=== PATIENT | male | born 1945 ===

== ENCOUNTER 2018-02-04 12:54 | Emergency (ER) | payer MEDICARE, OTHER ==
[2018-02-04 13:12] VITALS: BP 132/77
[2018-02-04] MEDS ORDERED: cefTRIAXone VIAL(*) 1,000 MG VIAL IM ONE (14:05)
[2018-02-04] MEDS ORDERED: Lidocaine 1% INJ* 10 MG/ML 30 ML SDV INJ ONE (14:06)
[2018-02-04] MEDS ORDERED: Lidocaine 1%* 5 ML VIAL ONE (14:09)
--- NOTE | 2018-02-04 14:28 | RAD ---
HISTORY: swollen red joint tenderness COMPARISONS: None VIEWS: 3, Frontal, lateral, and oblique views of the fourth digit of the right foot FINDINGS: BONE DENSITY: Normal. BONES: There is no displaced fracture. There is no appreciable erosion or periosteal reaction. JOINTS: There is no arthropathy. ALIGNMENT: There is no dislocation. SOFT TISSUES: There is soft tissue swelling at the level of the proximal interphalangeal joint of the fourth digit. OTHER FINDINGS: None. IMPRESSION: SOFT TISSUE SWELLING. NO ACUTE OSSEOUS INJURY. IF SYMPTOMS PERSIST, RECOMMEND REPEAT IMAGING.
--- NOTE | 2018-02-17 11:45 | UC ---
Jef Barahona Elizabeth, scribed for Gely Harper DO on 02/04/18 at 1355 . Lower Extremity/Ankle HPI - HPI Summary HPI Summary: This patient is a 72 year old M presenting to [facility] accompanied by his with a chief complaint of swelling, redness, and shooting pain in his right foot since last night. The patient reports that he initially noticed swelling and pain in his right 4th toe 4 days ago after wearing work boots, but what was there burst and drained fluid 2 days ago, alleviating most of the pain. The patient notes that he regularly cycles and participated in a 20K cycling race yesterday morning. Since 1 day ago, his whole right foot has become swollen, red , and painful. The patient also noticed a large tissue mass on the toe last night that was not initially present after the race. The patient rates the pain 9/10 in severity. Symptoms aggravated by bearing weight. Symptoms alleviated by nothing. The patient reports having chills last night, but no violent shivering. The patient also notes he got sunburnt on his legs, arms, and face 1 day ago. Patient denies any injury to the toe. The patient notes that he soaked the foot in Epsom salts. - History of Current Complaint Chief Complaint: UCLowerExtremity Stated Complaint: FOOT COMPLAINT Time Seen by Provider: 02/04/18 13:17 Hx Obtained From: Patient, Family/Help Desk Support Specialist - patient's Onset/Duration: Sudden Onset, Lasting Days - 4 days, Still Present, Worse Since - last night Severity Initially: Mild Severity Currently: Moderate Pain Intensity: 9 Pain Scale Used: 0-10 Numeric Aggravating Factor(s): Standing, Ambulation Alleviating Factor(s): Nothing Able to Bear Weight: Yes - Allergies/Home Medications Allergies/Adverse Reactions: Allergies Allergy/AdvReac Type Severity Reaction Status Date / Time No Known Allergies Allergy Verified 02/04/18 13:12 PMH/Surg Hx/FS Hx/Imm Hx Other Cardiovascular History: heart murmur, leaking mitral valve Respiratory History: Asthma Other Respiratory History: asthma as a child, resolved since - Surgical History Surgical History: Yes Surgery Procedure, Year, and Place: tonsillectomy - Family History Known Family History: Positive: Cardiac Disease - Social History Alcohol Use: Weekly Substance Use Type: None Smoking Status (MU): Never Smoked Tobacco Review of Systems Constitutional: Chills Skin: Other - redness on right foot, large tissue mass to right 4th toe Respiratory: Negative - NEGATIVE COUGH Gastrointestinal: Negative - NEGATIVE VOMITING, NEGATIVE NAUSEA Musculoskeletal: Edema - to right foot All Other Systems Reviewed And Are Negative: Yes Physical Exam - Summary Physical Exam Summary: Appearance: Well-Appearing, No Pain Distress, Well-Nourished Eyes: conjunctiva clear, no discharge ENT: Hearing grossly normal, no muffled/hoarse voice. Neck: Normal, Supple Respiratory/Lung Sounds: Lungs clear, Normal breath sounds, No respiratory distress, No accessory muscle use Cardiovascular: irregular rate, irregular rhythm Musculoskeletal: tenderness on plantar aspect of MCP, entire 4th toe is tender from the MCP distally, crepitus is noted on the plantar aspect of the MCP of the 4th toe, pedal edema is noted of the right foot Neurological: Alert, muscle tone normal Psychiatric: Normal, age appropriate behavior Skin: 1cm intact blister on top of right 4th toe that looks like it may contain some purulent material, redness and swelling extends over the entire toe all the way to the MCP Triage Information Reviewed: Yes Vital Signs: Initial Vital Signs Temp 98.9 F 02/04/18 13:04 Pulse 111 02/04/18 13:04 Resp 18 02/04/18 13:04 BP 132/77 02/04/18 13:04 Pulse Ox 99 02/04/18 13:04 Vital Signs Reviewed: Yes Diagnostics - Radiology Right 4th Toe XR Xray Interpretation: No Acute Changes - IMPRESSION: SOFT TISSUE SWELLING. NO ACUTE OSSEOUS INJURY. IF SYMPTOMS PERSIST, RECOMMEND REPEAT IMAGING. Dr. Harper has reviewed this report. Radiology Interpretation Completed By: Radiologist Lower Extremity Course/Dx - Course Course Of Treatment: This patient is a 72 year old M reporting swelling, redness , and shooting pain in his right foot since last night. The patient reports that he initially noticed swelling and pain in his right 4th toe 4 days ago, but what was there burst and drained fluid 2 days ago. After participating in a 20K bike race 1 day ago, his whole right foot became swollen, red, and painful and he noticed a large tissue mass on the toe starting last night. In the [facility] course the patient was given Rocephin and Xylocaine 1%. XR result reviewed with patient. Patient will be discharged with prescription for amoxicillin and a referral for an orthopedist. The patient is agreeable with this plan. Medications reviewed. Allergies reviewed. - Differential Dx/Diagnosis Provider Diagnoses: infection Discharge - Sign-Out/Discharge Documenting (check all that apply): Discharge/Admit/Transfer - Discharge Plan Condition: Stable Disposition: HOME Discharge Disposition Comment: discharge home Prescriptions: Amoxicillin/Clavulanate TAB* [Augmentin TAB 875*] 875 mg PO BID #20 tab Patient Education Materials: Wound Infection (DC), Septic Arthritis (DC) Referrals: Stephon Elizabeth MD [Primary Care Provider] - Deonte Pereyra MD [Medical Doctor] - 1 Day Additional Instructions: ROCEPHIN: You have been given an injection of an antibiotic called Rocephin ( ceftriaxone). Sometimes the injection must be combined with antibiotic pills. For some infections, such as an uncomplicated ear infection, Rocephin provides all the antibiotic that's needed. The antibiotic will be in your body for about two days. For serious infections, we usually repeat doses of Rocephin daily. Side effects are very unusual following a shot. Women may develop vaginal yeast infections, and babies can get yeast (thrush) in the mouth following the use of antibiotics. Contact your physician if you have symptoms with this medication. Allergy to this antibiotic can result in hives, wheezing, faintness, or itching. If symptoms of allergy occur, call the doctor at once. AUGMENTIN: Augmentin is a mixture of amoxicillin and clavulanate. Amoxicillin is a member of the penicillin family. It covers the germs likely to cause ear, bronchial, and urinary infections better than plain penicillin. The addition of clavulanate allows it to cover staph infections of the skin, as well as resistant cases of ear and sinus infections. Your physician has chosen Augmentin for you because of the special nature of your situation. Augmentin is best taken with meals. Nausea after taking the medication is rare, but can occur. Diarrhea can occur, particularly in small children. Vaginal yeast infections, and oral thrush in infants are also common. Contact your physician if these problems occur. Allergy to penicillins is common. If you have had an allergic reaction to any drug of the penicillin family, you should never take any other penicillin. Notify your doctor at once if you develop hives, shortness of breath, swelling, or faintness. ANYTIME YOU TAKE AN ANTIBIOTIC, IT IS IMPORTANT TO REPLENISH THE BODY'S SUPPLY OF "GOOD BACTERIA." YOU CAN GET GOOD BACTERIA FROM HIGH QUALITY CULTURED FOODS SUCH LOCAL YOGURT, SOUR KRAUT, LALITA ANNE MARIE, NATURALLY FERMENTED PICKLES AND PROBIOTIC DRINKS. YOU CAN ALSO GET GOOD BACTERIA FROM A PROBIOTIC SUPPLEMENT. The documentation as recorded by the Jef wang Elizabeth accurately reflects the service I personally performed and the decisions made by me, Gely Harper DO.
== END 2018-02-04 15:06 | disposition home or self-care (01) ==
LOC: UCEAST 12:54
DX: L08.9 Local infection of the skin and subcutaneous tissue, unspecified (principal); S90.424A Blister (nonthermal), right lesser toe(s), initial encounter; X58.XXXA Exposure to other specified factors, initial encounter; Y93.9 Activity, unspecified; Y92.9 Unspecified place or not applicable; R60.0 Localized edema; R01.1 Cardiac murmur, unspecified; I34.0 Nonrheumatic mitral (valve) insufficiency; J45.909 Unspecified asthma, uncomplicated; Z82.49 Family history of ischemic heart disease and other diseases of the circulatory system
CPT/HCPCS: 96372; 99213; G0463; J0696

== ENCOUNTER 2018-02-04 23:33 | Emergency (ER) | payer MEDICARE, OTHER ==
[2018-02-05] MEDS ORDERED: Clindamycin 600 MG IVPREMIX(* 600 MG/50 ML SDV IV ONE (00:03)
[2018-02-05 00:22] LABS: ABS Basophils 0.1 10^3/ul (0-0.2); ABS Eosinophils 0.5 10^3/ul (0-0.6); ABS Lymphocytes 1.3 10^3/ul (1.0-4.8); ABS Monocytes 0.8 10^3/ul (0-0.8); ABS Neutrophils 4.6 10^3/ul (1.5-7.7); ABS Nucleated RBC 0 10^3/ul; Eosinophil % 7.5 % (0-6); Hematocrit 40 % (42-52); Hemoglobin 13.7 g/dl (14.0-18.0); Lymphocyte % 17.6 % (25-47); Mean Corpuscular HGB Conc 34 g/dl (31-36); Mean Corpuscular Hemoglobin 33 pg (27-31); Mean Corpuscular Volume 98 fL (80-94); Mean Platelet Volume 6.7 um3 (7.4-10.4); Nucleated Red Blood Cells % 0; Platelet Count 216 10^3/ul (150-450); Red Blood Count 4.11 10^6/ul (4.00-5.40); Red Cell Distribution Width 14 % (10.5-15); White Blood Count 7.4 10^3/ul (3.5-10.8)
[2018-02-05 00:38] LABS: EGFR Non-African American 69.4 (>60)
[2018-02-05 01:55] VITALS: BP 121/75
--- NOTE | 2018-02-05 05:05 | ED ---
Sondra Barahona Gabriel, scribed for Haider Garcia MD on 02/04/18 at 2355 . Lower Extremity - HPI Summary HPI Summary: This patient is a 73 year old M presenting to [facility] accompanied by his with a chief complaint of fourth toe infection on the right foot that began 4 days ago and has gotten worse. The patient rates the pain 5/10 in severity. Since then the swelling and redness has increased beyond the outlined area. Patient reports swelling up the knee. He was seen at [facility] where xrays were done and he was given abx. Pt states he had a blister on the foot that popped which allowed infection to enter. - History of Current Complaint Chief Complaint: EDExtremityLower Stated Complaint: SWELLING Time Seen by Provider: 02/04/18 23:47 Hx Obtained From: Patient Mechanism Of Injury: Other Onset of Pain: Immediate Onset/Duration: Still Present Severity Initially: Moderate Severity Currently: Moderate Pain Intensity: 5 Pain Scale Used: 0-10 Numeric Timing: Constant Location: Is Discrete @ - RLE Associated Signs And Symptoms: Positive: Swelling, Redness Able to Bear Weight: Yes - Allergies/Home Medications Allergies/Adverse Reactions: Allergies Allergy/AdvReac Type Severity Reaction Status Date / Time No Known Allergies Allergy Verified 02/04/18 23:40 PMH/Surg Hx/FS Hx/Imm Hx Endocrine/Hematology History: Denies: Hx Diabetes, Hx Thyroid Disease Cardiovascular History: Denies: Hx Hypertension Respiratory History: Denies: Hx Asthma, Hx Chronic Obstructive Pulmonary Disease (COPD) GI History: Denies: Hx Ulcer Psychiatric History: Denies: Hx Oppositional [place] Disorder, Hx Post Traumatic Stress Disorder - Surgical History Surgery Procedure, Year, and Place: tonsillectomy Infectious Disease History: No Infectious Disease History: Denies: Hx Hepatitis, Hx Human Immunodeficiency Virus (HIV), Traveled Outside the [place] in Last 30 Days - Family History Known Family History: Negative: Renal Disease, Respiratory Disease, Seizure Disorder - Social History Lives: With Family Alcohol Use: Weekly Substance Use Type: Reports: None Smoking Status (MU): Never Smoked Tobacco Review of Systems Musculoskeletal: Other - foot and calf pain Positive: Edema Positive: Other - infection, redness, All Other Systems Reviewed And Are Negative: Yes Physical Exam - Summary Physical Exam Summary: Appearance: Well appearing, no pain distress Skin: Pointing abscess in the web space between 3rd and 4th toes most involving the medal aspect 4th. The erythema is extending beyond the previously marked lines. Head/face: normal Eyes: EOMI, MADELAINE ENT: normal Neck: supple, non-tender Respiratory: CTA, breath sounds present Cardiovascular: bradycardic pulses symmetrical Abdomen: non-tender, soft Bowel Sounds: present Musculoskeletal: normal, strength/ROM intact, no significant swelling, there is mild swelling at the ankle Neuro: normal, sensory motor intact, A&Ox3 Triage Information Reviewed: Yes Vital Signs On Initial Exam: Initial Vitals Temp Pulse Resp BP Pulse Ox 98.6 F 68 18 152/84 100 02/04/18 23:35 02/04/18 23:35 02/04/18 23:35 02/04/18 23:35 02/04/18 23:35 Vital Signs Reviewed: Yes Procedures - Incision and Drainage Right Lower Plantar Foot Site: I unroofed the abscess, no foreign body, culture sent, well tolerated, Instrument(s): Needle - 18g Diagnostics - Vital Signs Vital Signs Temp Pulse Resp BP Pulse Ox 02/04/18 23:35 98.6 F 68 18 152/84 100 - Laboratory Lab Results: Lab Results 02/05/18 02/05/18 02/05/18 Range/Units 00:04 00:04 00:04 WBC 7.4 (3.5-10.8) 10^3/ul RBC 4.11 (4.00-5.40) 10^6/ul Hgb 13.7 L (14.0-18.0) g/dl Hct 40 L (42-52) % MCV 98 H (80-94) fL MCH 33 H (27-31) pg MCHC 34 (31-36) g/dl RDW 14 (10.5-15) % Plt Count 216 (150-450) 10^3/ul MPV 6.7 L (7.4-10.4) um3 Neut % (Auto) 62.9 (38-83) % Lymph % (Auto) 17.6 L (25-47) % [place] % (Auto) 11.0 H (0-7) % Eos % (Auto) 7.5 H (0-6) % Baso % (Auto) 1.0 (0-2) % Absolute Neuts (auto) 4.6 (1.5-7.7) 10^3/ul Absolute Lymphs (auto) 1.3 (1.0-4.8) 10^3/ul Absolute Monos (auto) 0.8 (0-0.8) 10^3/ul Absolute Eos (auto) 0.5 (0-0.6) 10^3/ul Absolute Basos (auto) 0.1 (0-0.2) 10^3/ul Absolute Nucleated RBC 0 10^3/ul Nucleated RBC % 0 Sodium 136 (135-145) mmol/L Potassium 4.1 (3.5-5.0) mmol/L Chloride 101 (101-111) mmol/L Carbon Dioxide 28 (22-32) mmol/L Anion Gap 7 (2-11) mmol/L BUN 25 H (6-24) mg/dL Creatinine 1.05 (0.67-1.17) mg/dL Est GFR ( Amer) 89.3 (>60) Est GFR (Non-Af Amer) 69.4 (>60) BUN/Creatinine Ratio 23.8 H (8-20) Glucose 122 H (70-100) mg/dL Lactic Acid 0.6 (0.5-2.0) mmol/L Calcium 9.4 (8.6-10.3) mg/dL Result Diagrams: 02/05/18 00:04 02/05/18 00:04 Lab Statement: Any lab studies that have been ordered have been reviewed, and results considered in the medical decision making process. Lower Extremity Course/Dx - Course Course Of Treatment: Patient has a pointing abscess of the toe and web space with surrounding cellulitis. I unroofed the abscess with needle and peeled off the skin. It drained purulence. There is no evidence for foreign body on x- ray performed earlier in the day. He is starting on antibiotics. I added a dose of IV clindamycin here. His lab work is benign and he has no fever. The erythema is slightly outside of marked area from earlier in the day. He likely will improve quickly now that he has been drained. Patient prefers to be discharged and was so in improved condition. - Diagnoses Differential Diagnosis/HQI/PQRI: Positive: Other - Cellulitis, abscess, foreign body, bacteremia Provider Diagnoses: Abscess of right foot, Cellulitis Discharge - Sign-Out/Discharge Documenting (check all that apply): Discharge/Admit/Transfer - Discharge Plan Condition: Improved Disposition: HOME Patient Education Materials: Abscess (ED) Referrals: Stephon Elizabeth MD [Primary Care Provider] - Additional Instructions: Continue your antibiotics as previously prescribed. Follow up with your doctor in the morning. Clean with soap and water twice a day. Use a breathable dressing such as what I showed you and placed in the ER. Return with fever, nausea or vomiting, worse, extending redness or other concerns. - Billing Disposition and Condition Condition: IMPROVED Disposition: Home The documentation as recorded by the Sondra wang Gabriel accurately reflects the service I personally performed and the decisions made by me, Haider Garcia MD.
== END 2018-02-05 02:03 | disposition home or self-care (01) ==
LOC: ED 23:33
DX: L02.611 Cutaneous abscess of right foot (principal); L03.115 Cellulitis of right lower limb; R60.0 Localized edema; L08.9 Local infection of the skin and subcutaneous tissue, unspecified; S90.424A Blister (nonthermal), right lesser toe(s), initial encounter; X58.XXXA Exposure to other specified factors, initial encounter; Y93.9 Activity, unspecified; Y92.9 Unspecified place or not applicable; R01.1 Cardiac murmur, unspecified; I34.0 Nonrheumatic mitral (valve) insufficiency; J45.909 Unspecified asthma, uncomplicated; Z82.49 Family history of ischemic heart disease and other diseases of the circulatory system
CPT/HCPCS: 36415; 80048; 83605; 85025; 87040; 96374; 99283

== ENCOUNTER 2019-06-13 18:33 | Emergency (ER) | payer MEDICARE, OTHER ==
[2019-06-13 19:06] VITALS: BP 122/70
--- NOTE | 2019-06-13 19:08 | UC ---
Lower Extremity/Ankle HPI - HPI Summary HPI Summary: The patient is a 74-year-old male who this morning stumbled over his 's oxygenator and injured his left foot. He has been able to ambulate all day and was doing a lot of yard work. When he came in the house tonight and removed his boots he noticed his left foot is bruised. He states his pain is minimal without weightbearing and only mild with weightbearing. - History of Current Complaint Stated Complaint: FOOT INJURY Time Seen by Provider: 06/13/19 18:35 Hx Obtained From: Patient Onset/Duration: Sudden Onset Severity Initially: Mild Severity Currently: Mild Pain Intensity: 2 Pain Scale Used: 0-10 Numeric Aggravating Factor(s): Standing, Ambulation Alleviating Factor(s): Rest Able to Bear Weight: Yes Feet (Multiple View): 1 - tender/ecchymotic 2 - bruised - Allergies/Home Medications Allergies/Adverse Reactions: Allergies Allergy/AdvReac Type Severity Reaction Status Date / Time moxifloxacin [From Avelox] Allergy See Comment Verified 06/13/19 19:03 PMH/Surg Hx/FS Hx/Imm Hx - Surgical History Surgical History: Yes Surgery Procedure, Year, and Place: tonsillectomy - Family History Known Family History: Negative: Renal Disease, Respiratory Disease, Seizure Disorder - Social History Alcohol Use: Weekly Substance Use Type: None Smoking Status (MU): Never Smoked Tobacco Review of Systems All Other Systems Reviewed And Are Negative: Yes Constitutional: Positive: Negative Skin: Positive: Bruising Eyes: Positive: Negative ENT: Positive: Negative Respiratory: Positive: Negative Cardiovascular: Positive: Negative Gastrointestinal: Positive: Negative Genitourinary: Positive: Negative Motor: Positive: Negative Neurovascular: Positive: Negative Musculoskeletal: Positive: Arthralgia Neurological: Positive: Negative Psychological: Positive: Negative Physical Exam Triage Information Reviewed: Yes Appearance: Well-Appearing, No Pain Distress, Well-Nourished Vital Signs Reviewed: Yes Eyes: Positive: Conjunctiva Clear ENT: Positive: Hearing grossly normal. Negative: Nasal congestion, Nasal drainage, Trismus, Muffled voice, Hoarse voice Neck: Positive: Supple, Nontender, No Lymphadenopathy Respiratory: Positive: Lungs clear, Normal breath sounds, No respiratory distress Cardiovascular: Positive: RRR, No Murmur Musculoskeletal: Positive: ROM Limited @ - left little toe, Edema @ - dorsum or forefoot Neurological: Positive: Alert Psychological Exam: Normal Skin Exam: Other - bruising as noted Diagnostics - Radiology No standard instances Radiology Interpretation Completed By: ED Physician Summary of Radiographic Findings: fracture base 5th PP. ? avulsion fracture base 1st PP Lower Extremity Course/Dx - Differential Dx/Diagnosis Provider Diagnosis: Fracture of fifth toe, right, closed Discharge ED - Sign-Out/Discharge Documenting (check all that apply): Patient Departure All imaging exams completed and their final reports reviewed: No - Discharge Plan Condition: Stable Disposition: HOME Patient Education Materials: Toe Fracture (ED), Post Surgical Shoe (ED) Referrals: Stephon Elizabeth MD [Primary Care Provider] - 2 Weeks Additional Instructions: official xr reading pending - Billing Disposition and Condition Condition: STABLE Disposition: Home
== END 2019-06-13 20:01 | disposition home or self-care (01) ==
LOC: UCEAST 18:33
DX: S92.591A Other fracture of right lesser toe(s), initial encounter for closed fracture (principal); Z88.1 Allergy status to other antibiotic agents; W22.8XXA Striking against or struck by other objects, initial encounter; Y92.9 Unspecified place or not applicable
CPT/HCPCS: 99212; G0463